=== PATIENT | female | born 2000 | race Caucasian/White ===

== ENCOUNTER 2023-04-11 09:26 | Outpatient (CLI) | payer OTHER, SELFPAY | END 2023-04-11 09:27 | disposition home or self-care (01) | PROVIDERS: Visit Provider Family Medicine | DX: Z00.00 Encounter for general adult medical examination without abnormal findings (principal); Z13.6 Encounter for screening for cardiovascular disorders; Z13.0 Encounter for screening for diseases of the blood and blood-forming organs and certain disorders involving the immune mechanism; Z83.79 Family history of other diseases of the digestive system | CPT/HCPCS: 80053; 80061 ==

== ENCOUNTER 2024-03-02 01:58 | Emergency (ER) | payer BC, SELFPAY ==
[2024-03-02 02:08] VITALS: BP 141/93; PULSE 100; RESP 16; TEMP 36.4; O2SAT 94; BMI 43.9
--- NOTE | 2024-03-02 02:37 | ED_ITS ---
HPI - Dizziness General Date Seen: 03/02/24 <Niko Rincon MD - Last Filed: 03/03/24 10:29> Chief Complaint: Dizziness/Vertigo <Niko Rincon MD - Last Filed: 03/03/24 10:29> Stated Complaint: vomiting <Niko Rincon MD - Last Filed: 03/03/24 10:29> Time Seen by Provider: 03/02/24 02:01 <Niko Rincon MD - Last Filed: 03/03/24 10:29> Source: patient and family <Niko Rincon MD - Last Filed: 03/03/24 10:29> Mode of arrival: wheelchair <Niko Rincon MD - Last Filed: 03/03/24 10:29> Limitations: no limitations <Niko Rincon MD - Last Filed: 03/03/24 10:29> History of Present Illness HPI Narrative: Patient is a 23-year-old female who presents here for evaluation of dizziness, she has had this before although this type is more intense than she has had before. For the last 4-6 hours she has had intense vomiting will and feeling that the room is moving or spinning whenever she sits up or changes position. She has vomited approximately 12 times she is here today with her partner. She has had this before, and did try some [place]-Hallpike maneuvers at home, but she said this just made her vomit more. In the past she has used medication but was out of any medication. In the nurse has listed Imitrex although I do not know if this is actually the medication that she got. She denies any numbness tingling or weakness in her hands or feet, she denies any visual changes, she has no altered sensation notable, no history of inability to walk, falling to 1 side, although she says she does feel we more nauseous and vomiting when she is up moving around. She denies no clumsiness or any speech problems associated with this she did not have a headache, and says he only headache now she has is from the repeated vomiting. She does think that her hearing is a little bit muffled. She does note however for the last week or so she has felt stuffed up, and wonders if this is somehow would trigger there is no history of falls or head injury. Review of her chart shows and 2017 she was here, with similar type symptoms. She was given Antivert and [place]-Hallpike maneuvers. She does have a history of asthma. <Niko Rincon MD - Last Filed: 03/03/24 1 0:29> MD elicited complaint: dizziness and vertigo <Niko Rincon MD - Last Filed: 03/03/24 10:29> Pertinent past history: BPPV and inner ear problems <Niko Rincon MD - Last Filed: 03/03/24 10:29> Onset (ago): hour(s) <Niko Rincon MD - Last Filed: 03/03/24 10:29> Timing: sudden onset and episodic <Niko Rincon MD - Last Filed: 03/03/24 10:29> Severity: severe <Niko Rincon MD - Last Filed: 03/03/24 10:29> Description: sense of movement and room spinning <Niko Rincon MD - Last Filed: 03/03/24 10:29> History of similar symptoms: Yes <Niko Rincon MD - Last Filed: 03/03/24 10:29> Exacerbating factors: movement/ambulation and change in body position <Niko Rincon MD - Last Filed: 03/03/24 10:29> Relieving factors: remaining still and keeping eyes closed <Niko Rincon MD - Last Filed: 03/03/24 10:29> Associated symptoms: nausea, vomiting and nasal congestion <Niko Rincon MD - Last Filed: 03/03/24 10:29> Stroke scale total: 0 <Niko Rincon MD - Last Filed: 03/03/24 10:29> Related Data Home Medications: Home Medications ?Medication ?Instructions ?Recorded ?Confirmed albuterol sulfate 90 mcg/actuation 2 puff inhalation Q6H PRN 02/28/24 02/28/24 aerosol inhaler Previous Rx's ?Medication ?Instructions ?Recorded fluticasone 250 mcg-salmeterol 50 1 inh inhalation BID #60 ea 02/28/24 mcg/dose blistr powdr for inhalation (Advair Diskus) meclizine 25 mg tablet 25 mg PO TID PRN #15 tabs 03/02/24 ondansetron 4 mg disintegrating 4 mg PO Q8H PRN nausea and 03/02/24 tablet vomiting #7 tabs <Niko Rincon MD - Last Filed: 03/03/24 10:29> Allergies/Adverse Reactions: Allergies Allergy/AdvReac Type Severity Reaction Status Date / Time No Known Drug Allergies Allergy Verified 02/28/24 11:06 <Niko Rincon MD - Last Filed: 03/03/24 10:29> Review of Systems Status of ROS: Reports: 10 or more systems reviewed and unremarkable except as noted in History and below <Niko Rincon MD - Last Filed: 03/03/24 10:29> [facility] Medical History: Medical History Benign paroxysmal positional vertigo (10/10/16) ?H81.10 - Benign paroxysmal vertigo, unspecified ear (ICD-10) <Niko Rincon MD - Last Filed: 03/03/24 10:29> Social History: Social History Little interest or pleasure in doing things: more than half the days Feeling down, depressed, or hopeless: several days <Niko Rincon MD - Last Filed: 03/03/24 10:29> Exam Narrative: Exam Narrative: She is in room 2, she is here with her partner, her speech is entirely normal, she is alert oriented x3, GCS is 15/15, she prefers the room dark, her TMs bilaterally are normal, so is a set her up she starts to retch and vomit. Cranial nerves 3-12 are normal, she appears to have left-sided horizontal nystagmus. 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 Skin reveals no petechiae rashes. <Niko Rincon MD - Last Filed: 03/03/24 10:29> Const: Vital Signs, click to edit/add: Vital Signs - 24 hr 03/02/24 02:08 03/02/24 05:55 03/02/24 08:33 Temperature 97.6 F 97.3 F L Pulse Rate [Pulse Oximeter] 100 64 75 Respiratory Rate 16 16 18 Blood Pressure [Ri ght Upper Arm] 141/93 H 121/80 Pulse Oximetry 94 97 98 Oxygen Delivery Me thod Room Air Room Air Room Air <Niko Rincon MD - Last Filed: 03/03/24 10:29> Vital Signs, click to edit/add: Vital Signs - 24 hr 03/02/24 02:08 03/02/24 05:55 03/02/24 08:33 Temperature 97.6 F 97.3 F L Pulse Rate [Pulse Oximeter] 100 64 75 Respiratory Rate 16 16 18 Blood Pressure [Ri ght Upper Arm] 141/93 H 121/80 Pulse Oximetry 94 97 98 Oxygen Delivery Me thod Room Air Room Air Room Air <Leonela Chand MD - Last Filed: 03/02/24 09:24> Documenting provider has reviewed patient's vital signs: yes <Niko Rincon MD - Last Filed: 03/03/24 10:29> Course Reevaluation(s) Time of Reevaluation #1: 03:12 <Niko Rincon MD - Last Filed: 03/03/24 10:29> Reevaluation #1: I went back in and evaluated the patient she is doing much better after medications, she was able to fall asleep, she feels much less dizzy. I reviewed her laboratory tests which were all normal with her. I do think that this is partially related to her URI that she has. I am not getting a feeling that this is central vertigo, <Niko Rincon MD - Last Filed: 03/03/24 10:29> Time of Reevaluation #2: 04:19 <Niko Rincon MD - Last Filed: 03/03/24 10:29> Reevaluation #2: She is doing better but she still really unable to sit up, this is really bad vertigo that this young lady has. I will do a CT scan to rule out intra cranial abnormality, and I will do an MRI and a CT , no evidence he has had previous neuro imaging done. We also try some Ativan, and I will sign her over to the oncoming ER physician. For further delineation after MRI. <Niko Rincon MD - Last Filed: 03/03/24 10:29> Reevaluation #3: Patient was signed out to me by Dr. Rincon to follow-up on the MRI. MRI is read by Radiology as follows: Patient: BENSON PINTO Facility:?[facility] Patient ID:?[id number] Site Patient ID:?[id number]. Site :?[id number] Study:?MRI-Head WO-03/02/2024 8:24:55 AM Ordering Physician:?Mckenzie Pope Final Report: INDICATION: Vertigo. Nystagmus. Unable to walk. TECHNIQUE: Brain MRI without contrast. COMPARISON: Head CT from 03/02/2024. FINDINGS: No evidence of acute ischemia. No evidence of acute or chronic intracranial blood products. No pathologic intracranial signal abnormality. No mass effect or herniation. No hydrocephalus or extra-axial collections. The pituitary gland, parasellar structures and optic chiasm are normal. Posterior fossa is normal. All the major intracranial vascular structures demonstrate normal flow-related signal. The orbital contents are normal. No calvarial or skull base marrow replacing process. No obstructive sinus disease. No extracranial soft tissue findings. IMPRESSION: 1. No significant intracranial abnormality. Dictated by Carlos Menezes MD @ 03/02/2024 9:02:15 AM Patient feels improved and able to go home. She requests a work note for the next couple of nights, this was provided. I sent prescriptions for meclizine and Zofran. Recommend follow-up with primary care if symptoms are persistent and not improving over the next couple of days. Return any time for acute worsening. <Leonela Chand MD - Last Filed: 03/02/24 09:24> Vital Signs Vital signs: Initial Vital Signs Temperature 97.6 F 03/02/24 02:08 Temperature Source Temporal Artery Scan 03/02/24 02:08 Pulse Rate 100 03/02/24 02:08 Respiratory Rate 16 03/02/24 02:08 Blood Pressure 141/93 H 03/02/24 02:08 Blood Pressure Mean 109 H 03/02/24 02:08 Blood Pressure Position Supine 03/02/24 02:08 Pulse Oximetry 94 03/02/24 02:08 Oxygen Delivery Method Room Air 03/02/24 02:08 Vital Signs Temperature 97.6 F 03/02/24 02:08 Pulse Rate 100 03/02/24 02:08 Respiratory Rate 16 03/02/24 02:08 Blood Pressure 141/93 H 03/02/24 02:08 Pulse Oximetry 94 03/02/24 02:08 Oxygen Delivery Method Room Air 03/02/24 02:08 Temperature 97.3 F L 03/02/24 08:33 Pulse Rate 75 03/02/24 08:33 Respiratory Rate 18 03/02/24 08:33 Blood Pressure 121/80 03/02/24 08:33 Pulse Oximetry 98 03/02/24 08:33 Oxygen Delivery Method Room Air 03/02/24 08:33 <Niko Rincon MD - Last Filed: 03/03/24 10:29> Initial Vital Signs Temperature 97.6 F 03/02/24 02:08 Temperature Source Temporal Artery Scan 03/02/24 02:08 Pulse Rate 100 03/02/24 02:08 Respiratory Rate 16 03/02/24 02:08 Blood Pressure 141/93 H 03/02/24 02:08 Blood Pressure Mean 109 H 03/02/24 02:08 Blood Pressure Position Supine 03/02/24 02:08 Pulse Oximetry 94 03/02/24 02:08 Oxygen Delivery Method Room Air 03/02/24 02:08 Vital Signs Temperature 97.6 F 03/02/24 02:08 Pulse Rate 100 03/02/24 02:08 Respiratory Rate 16 03/02/24 02:08 Blood Pressure 141/93 H 03/02/24 02:08 Pulse Oximetry 94 03/02/24 02:08 Oxygen Delivery Method Room Air 03/02/24 02:08 Temperature 97.3 F L 03/02/24 08:33 Pulse Rate 75 03/02/24 08:33 Respiratory Rate 18 03/02/24 08:33 Blood Pressure 121/80 03/02/24 08:33 Pulse Oximetry 98 03/02/24 08:33 Oxygen Delivery Method Room Air 03/02/24 08:33 <Leonela Chand MD - Last Filed: 03/02/24 09:24> Medications Administered Medications: Discontinued Medications Generic Name Dose Route Start Last Admin Trade Name Freq PRN Reason Stop Dose Admin Sodium Chloride 250 mls @ 250 mls/hr 03/02/24 02:28 03/02/24 03:45 0.9 % Sodium Chloride 250 Ml IV 03/02/24 03:27 Infused .Q1H ONE Infusion Diphenhydramine HCl 50 mg/ 101 mls @ 404 mls/hr 03/02/24 02:48 03/02/24 03:45 Sodium Chloride IVPB 03/02/24 02:49 Infused ONCE ONE Infusion Lorazepam 1 mg 03/02/24 03:51 03/02/24 03:59 Lorazepam 2 Mg/Ml Inj IVP 03/02/24 03:52 1 mg Q6H ONE Administration Ondansetron HCl 4 mg 03/02/24 02:28 03/02/24 02:41 Ondansetron 2 Mg/Ml Inj IVP 4 mg ONCE PRN Administration <Niko Rincon MD - Last Filed: 03/03/24 10:29> Discontinued Medications Generic Name Dose Route Start Last Admin Trade Name Yareli PRN Reason Stop Dose Admin Sodium Chloride 250 mls @ 250 mls/hr 03/02/24 02:28 03/02/24 03:45 0.9 % Sodium Chloride 250 Ml IV 03/02/24 03:27 Infused .Q1H ONE Infusion Diphenhydramine HCl 50 mg/ 101 mls @ 404 mls/hr 03/02/24 02:48 03/02/24 03:45 Sodium Chloride IVPB 03/02/24 02:49 Infused ONCE ONE Infusion Lorazepam 1 mg 03/02/24 03:51 03/02/24 03:59 Lorazepam 2 Mg/Ml Inj IVP 03/02/24 03:52 1 mg Q6H ONE Administration Ondansetron HCl 4 mg 03/02/24 02:28 03/02/24 02:41 Ondansetron 2 Mg/Ml Inj IVP 4 mg ONCE PRN Administration <Leonela Chand MD - Last Filed: 03/02/24 09:24> MDM - Dizziness MDM Narrative Medical decision making narrative: Life-threatening differential diagnosis considered include, CVA, other differential diagnosis include BPPV, labyrinthitis, Meniere's disease, vestibular neuronitis, migraine, multiple sclerosis, otitis media, viral syndrome as well as other etiologies We will go ahead and start an IV, we will give her some Zofran I will check a test to ensure that she is not before we give any benzodiazepines I will check her old records to see if there has been neuro imaging done before. Not that I think he needs to be done for sure today given her past history, but it would be good to know. <Niko Rincon MD - Last Filed: 03/03/24 10:29> Differential Diagnosis Differential diagnosis: Likely adverse reaction to drug, benign paroxysmal positional vertigo, orthostatic hypotension, vertebral basilar insufficiency, cerebrovascular accident, acute vestibular neuronitis and transient cerebral ischemia <Niko Rincon MD - Last Filed: 03/03/24 10:29> Medical Records Attestation: I reviewed the patient's medical records. <Niko Rincon MD - Last Filed: 03/03/24 10:29> Lab Data Attestation: I reviewed the patient's lab results. <Niko Rincon MD - Last Filed: 03/03/24 10:29> Labs: Lab Results 03/02/24 03/02/24 Range/Units 02:30 04:40 WBC 10.32 (4.50-11.00) K/uL RBC 5.32 H (4.00-5.20) m/uL Hgb 15.6 (12.0-16.0) gm/dL Hct 45.1 (33.0-51.0) % MCV 85 (80-100) fL MCH 29 (26-34) pg MCHC 35 (32-36) gm/dL RDW Coeff of Leanne 12.2 (11.5-15.5) % Plt Count 351 (140-440) K/uL Neut % (Auto) 70.6 (42.0-72.0) % Lymph % (Auto) 21.0 (20-44) % [place] % (Auto) 5.1 (0.0-11.0) % Eos % (Auto) 1.2 (0.0-7.0) % Baso % (Auto) 0.8 (0.0-3.0) % Neut # (Auto) 7.29 H (1.7-7.0) K/uL Lymph # (Auto) 2.17 (0.90-2.90) K/uL [place] # (Auto) 0.50 (0.00-0.90) K/UL Eos # (Auto) 0.12 (0.00-0.50) K/uL Baso # (Auto) 0.08 (0.00-0.30) K/uL Abs Immat Gran (auto) 0.13 (0.00-0.30) K/uL Imm/Tot Granulo (auto) 1.3 % D-Dimer Quant (PE/DVT) 0.26 (0.00-0.50) ug/ml Sodium 141 (135-149) mmol/L Potassium 3.8 (3.6-5.1) mmol/L Chloride 103 (96-114) mmol/L Carbon Dioxide 24 (20-32) mmol/L Anion Gap 14 (7-15) mEq/L BUN 15 (5-24) mg/dL Creatinine 0.6 (0.5-1.5) mg/dL Estimated Creat Clear 114.35 Estimated GFR 128 ml/min Glucose 113 (60-115) mg/dL Calcium 10.2 (8.4-10.6) mg/dL C-Reactive Protein 2.2 H (0.5-1.0) mg/dL HCG, Qual Negative (Negative) SARS-CoV-2 (PCR) Negative SARS-CoV-2 (Negative) Influenza Type A (PCR) Negative PCR FLU A (Negative) Influenza Type B (PCR) Negative PCR FLU B (Negative) RSV (PCR) Negative PCR RSV (Negative) Lab Acknowledgement Test Added <Niko Rincon MD - Last Filed: 03/03/24 10:29> Lab Results 03/02/24 03/02/24 Range/Units 02:30 04:40 WBC 10.32 (4.50-11.00) K/uL RBC 5.32 H (4.00-5.20) m/uL Hgb 15.6 (12.0-16.0) gm/dL Hct 45.1 (33.0-51.0) % MCV 85 (80-100) fL MCH 29 (26-34) pg MCHC 35 (32-36) gm/dL RDW Coeff of Leanne 12.2 (11.5-15.5) % Plt Count 351 (140-440) K/uL Neut % (Auto) 70.6 (42.0-72.0) % Lymph % (Auto) 21.0 (20-44) % [place] % (Auto) 5.1 (0.0-11.0) % Eos % (Auto) 1.2 (0.0-7.0) % Baso % (Auto) 0.8 (0.0-3.0) % Neut # (Auto) 7.29 H (1.7-7.0) K/uL Lymph # (Auto) 2.17 (0.90-2.90) K/uL [place] # (Auto) 0.50 (0.00-0.90) K/UL Eos # (Auto) 0.12 (0.00-0.50) K/uL Baso # (Auto) 0.08 (0.00-0.30) K/uL Abs Immat Gran (auto) 0.13 (0.00-0.30) K/uL Imm/Tot Granulo (auto) 1.3 % D-Dimer Quant (PE/DVT) 0.26 (0.00-0.50) ug/ml Sodium 141 (135-149) mmol/L Potassium 3.8 (3.6-5.1) mmol/L Chloride 103 (96-114) mmol/L Carbon Dioxide 24 (20-32) mmol/L Anion Gap 14 (7-15) mEq/L BUN 15 (5-24) mg/dL Creatinine 0.6 (0.5-1.5) mg/dL Estimated Creat Clear 114.35 Estimated GFR 128 ml/min Glucose 113 (60-115) mg/dL Calcium 10.2 (8.4-10.6) mg/dL C-Reactive Protein 2.2 H (0.5-1.0) mg/dL HCG, Qual Negative (Negative) SARS-CoV-2 (PCR) Negative SARS-CoV-2 (Negative) Influenza Type A (PCR) Negative PCR FLU A (Negative) Influenza Type B (PCR) Negative PCR FLU B (Negative) RSV (PCR) Negative PCR RSV (Negative) Lab Acknowledgement Test Added <Leonela Chand MD - Last Filed: 03/02/24 09:24> Discharge Plan Discharge Clinical Impression: Vertigo, Vomiting <Niko Rincon MD - Last Filed: 03/03/24 10:29> Patient Disposition: Home, Self-Care <Niko Rincon MD - Last Filed: 03/03/24 10:29> Condition: Improved <Niko Rincon MD - Last Filed: 03/03/24 10:29> Instructions: Vertigo (DC) <Niko Rincon MD - Last Filed: 03/03/24 10:29> Additional Instructions: Your MRI today is normal. Your symptoms are likely related to problems with your inner ear. You can use meclizine and/or Zofran if needed symptomatically. See your doctor if symptoms persist. Return any time for acute worsening or new symptoms. <Niko Rincon MD - Last Filed: 03/03/24 10:29> Prescriptions: New meclizine 25 mg tablet 25 mg PO TID PRNQty: 15 0RF ondansetron 4 mg tablet,disintegrating 4 mg PO Q8H PRN (Reason: nausea and vomiting) Qty: 7 0RF No Action albuterol sulfate 90 mcg/actuation HFA aerosol inhaler 2 puff inhalation Q6H PRN fluticasone propion-salmeterol [Advair Diskus] 250-50 mcg/dose blister with device 1 inh inhalation BID Qty: 60 1RF <Niko Rincon MD - Last Filed: 03/03/24 10:29> Follow Up/Referrals: Matt Ortiz MD [Primary Care Provider] - <Niko Rincon MD - Last Filed: 03/03/24 10:29> [facility] <Niko Rincon MD - Last Filed: 03/03/24 10:29>
[2024-03-02] MEDS: ONDANSETRON 2 MG/ML inj 4 MG IVP (02:41)
[2024-03-02] MEDS: 0.9 % SODIUM CHLORIDE 250 ml 250 ML IV (02:41)
[2024-03-02 02:45] LABS: Basophils Absolute Auto 0.08 K/uL (0.00-0.30); Basophils Percent Auto 0.8 % (0.0-3.0); Eosinophils Absolute Auto 0.12 K/uL (0.00-0.50); Eosinophils Percent Auto 1.2 % (0.0-7.0); Hematocrit 45.1 % (33.0-51.0); Hemoglobin* 15.6 gm/dL (12.0-16.0); Immature Granulocytes Abs Auto 0.13 K/uL (0.00-0.30); Immature Granulocytes Pct Auto 1.3 %; Lymphocytes Absolute Auto 2.17 K/uL (0.90-2.90); Mean Corpuscular HGB Conc 35 gm/dL (32-36); Mean Corpuscular Hemoglobin 29 pg (26-34); Mean Corpuscular Volume 85 fL (80-100); Monocytes Percent Auto 5.1 % (0.0-11.0); Neutrophils Absolute Auto 7.29 K/uL (1.7-7.0); Neutrophils Percent Auto 70.6 % (42.0-72.0); Platelet Count* 351 K/uL (140-440); RDW Coefficient of Variation % 12.2 % (11.5-15.5); Red Blood Count 5.32 m/uL (4.00-5.20); White Blood Count* 10.32 K/uL (4.50-11.00)
[2024-03-02 02:46] LABS: Slide Review Reflex No
--- OUTSIDE RECORDS SUMMARY | 2024-03-02 02:52 | XMS_ITS | Clinical Summary ---
Author Organization [facility] [employer] Address [place], [place] [address] Care Team Providers Care Musical Engineer Name Role Phone [facility], [facility] Primary Care Pr ovider Allergies No known active allergies Medications Medication Sig Dispensed Refills Start Date End Date Status albuterol HFA (PROAIR HFA) 90 mcg/actuation inhalerIndications:Mild intermittent asthma without complication Inhale 2 Puffs by mouth every 4 hours if needed. 1 Inhaler 1 08/06/2019 Active cyclobenzaprine (FLEXERIL) 10 mg tabletIndications:Neck muscle spasm Take 1 Tablet (10 mg) by mouth 3 times daily if needed for Muscle Spasm. 21 Tablet 1 09/14/2021 Active levonorgestrel-ethinyl estrad, 0.1mg-20mcg, (ALESSE-28) 0.1-20 mg-mcg tabletIndications:Encou nter for oral contraception initial prescription Take 1 Tablet by mouth once daily. 84 Tablet 3 02/14/2023 Active fluticasone propion-salmeteroL (Advair Diskus) 100-50 mcg/dose diskus inhalerIndications:Exac erbation of asthma, unspecified asthma severity, unspecified whether persistent Inhale 1 Puff by mouth two times daily. 60 Each 04/04/2023 Active predniSONE (DELTASONE) 50 mg tab tabletIndications:Exace rbation of asthma, unspecified asthma severity, unspecified whether persistent,Sinusitis, unspecified chronicity, unspecified location Take 1 Tablet (50 mg) by mouth once daily. 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 Resolved Problems Problem Noted Date Diagnosed Date Resolved Date Unspecified disturbance of conduct 03/25/2008 06/30/2012 Unspecified constipation 09/08/200708/2012 Unspecified asthma(493.90) 04/07/2007 0 07/28/2021 Nonspecific abnormal results of thyroid function study 02/05/2007 06/30/2012 Dermatophytosis of foot 02/05/200708/2012 Immunizations Name Administration Dates Next Due AMB Influenza, IIV3 (Age >=3 years)(Flu Clinic Only) 05/09/2009,03/30/2008 AMB Influenza, IIV4 PF (=>6 mos Flulaval,Fluzone Fluarix)(Flu Clinic Only) 03/12/2016,02/11/2014 DTaP 12/10/2003,,1999,10/18,1999 DTaP-HIB (TriHIBIT) 1999 HIB PRP-OMP (PedvaxHIB) 1999 HIB-HepB (Comvax) 06/25/2000,1999 Hep B (Hepatitis B (Adult) R ecombinant Adjuvanted) 11/12/2022 Hepatitis A (Peds) 10/25/2008,08/02/2008, 001 Hepatitis B (Peds) 02/10/2007,1999 Human Papilloma Virus Vaccine 10/17/2011, 012,07/17/2010 Inactivated Polio Vaccine 12/10/2003,,1999,08/17 Influenza A (H1N1), Inactivated 05/16/2009,04/14 Influenza A (H1N1), Inactiva rao (Age >=3 Years) 05/16/2009,04/14/2009 Influenza Virus, Unspecified 03/12/2018 Influenza, IIV3 (Age 6-35 mos) 05/09/2009 Influenza, IIV3 (Age >=3 years) 05/10/20 15,04/18/2012,05/11/2011,03/08,03/30/2008,04/07/2007,07/17/2006 ,04/10/2004,05/05/2002 Influenza, IIV4 02/14/2023, 0,02/24/2019,04/25,03/12/2016,02/11/2014 MENINGOCOCCAL VACCINE 2 VIAL 2MO-55YO (MENVEO) 05/25/2016,07/17/2010 MMR 12/10/2003,06/25/2000 Meningococcal Vaccine (Menactra) 07/17/2010 Pneumococcal Conj 20-valent (Prevnar 20) 02/14/2023 Pneumococcal conj 7-Valent (Prevnar 7) 0 06/25/2000,03/28/2000,1999,10/18 Td (Age >=7 Years) 07/27/2021 Tdap 07/17/2010 Varicella Vaccine 02/10/2007,04/18/2005,06/25/19 01 Family History Medical History Relation Name Comments Cancer Maternal Grandmother ovarian cancer Diabetes Maternal Grandmother Asthma Mother Diabetes Mother type 2 Other Mother obese and PCOS Diabetes Paternal Grandmother Hyperlipidemia Paternal Grandmother Hypertension Paternal Grandmother Other Sister overweight Cancer-colon No Family History Heart Disease No Family History Relation Name Status Comments Maternal Grandmother Mother Paternal Grandmother Sister Social History Tobacco Use Types Packs/Day Years Used Date Smoking Tobacco: Former Cigarettes 0.3 5.4 S tarted: 09/29/2018 Smokeless Tobacco: Former Quit: 05/13/2019 Tobacco Cessation:Counseling Given: Not Answered Alcohol Use Standard Drinks/Week Comments Never 0 (1 standard drink = 0.6 oz pur e alcohol) PHQ-2 Answer Date Recorded PHQ-2 TOTAL SCORE 0 07/27/2021 Social Connections Answer Date Recorded Frequency of Communication with Friends and Fami ly Not on file 05/23/2021 Alcohol Use Answer Date Recorded How often do you have a drink containing alcohol ? 2 02/14/2023 How many drinks containing a lcohol do you have on a typical day when you are drinking? 0 02/14/2023 How often do you have five or more drinks on one occasion? 1 02/14/2023 Financial Resource Strain Answer Date R ecorded Difficulty of Paying Living Expenses Not on file 05/23/2021 Difficulty of Paying Living Expenses Not on file 05/23/2021 Sex and Gender Information Value Date Recorded Sex Assigned at Not on file Gender Identity Not on file Sexual Orientation Not on file Obstetrics History Para Term AB IAB SAB Ectopic Multiple Livin g Live Births 0 0 0 0 0 0 0 0 0 0 0 Last Filed Vital Signs Vital Sign Reading Time Taken Comments Blood Pressure 138/80 04/04/2023 12:15 PM EXPLOSIVE OPERATOR SUPERVISOR Pulse 91 04/04/2023 12:15 PM EXPLOSIVE OPERATOR SUPERVISOR Temperature 37.1 ??C (98.7 ??F) 04/04/2023 12:[address] Respiratory Rate 18 06/18/2022 3:28 PM EXPLOSIVE OPERATOR SUPERVISOR Oxygen Saturation 98% 04/04/2023 12:15 PM EXPLOSIVE OPERATOR SUPERVISOR Inhaled Oxygen Concentration - - Weight 114.3 kg (252 lb) 04/04/2023 12:15 PM EXPLOSIVE OPERATOR SUPERVISOR Height 161.2 cm (5' 3.47) 02/14/2023 9:01 AM CD T Body Mass Index 43.99 02/14/2023 9:01 AM CDT Plan of Treatment Upcoming Encounters Date Type Department Care Team (Late st Contact Info) Description 03/03/2024 7:50 AM CDT Office Visit [facility] [address] [place] [address] Jazmin Campos PA [address] [facility] [place] [address] Health Maintenance Due Date Last Done Comments Hepatitis C screening for age 18-79 2017 Chlamydia for age 16-24 07/27/2022 03/03/20 22, 03/22/2020, 06/05/2019, Additional history exists Depression screening for age 12+ 07/27/2022 07/27/2021, 03/23/2020, 03/22/2020, Additional history exists COVID-19 vaccine series (2023- season) 2024 05/25/2021, 10/13/2020, 09/15/2020 Influenza for age 9-49 01/26/2024 , 03/22/2020, 02/24/2019, Additional history exists BMI (ht and wt on same day) for age 18+ 02/15/2024 02/14/2023, 09/14/2021, 07/27/2021, Additional history exists Pap test for age 21-65 07/27/2024 07/27/2021 Tetanus booster 07/28/2031 07/27/2021, 07/17/2010 Tdap Completed 07/17/2010 HPV series for age 9-26 Addressed 10/17/19 12, 06/22/2011, 06/01/2011 (Declined), Additional history exists Overridden with the intention of not completing the topic HIV for age 15-65 Completed 03/22/2020 Pneumococcal series for age 6-64 Aged Out 02/14/2023, 06/25/2000, 03/28/2000, Additional history exists No longer eligible based on patient's age to complete this topic Procedures Procedure Name Priority Date/Time Associated Diagnosis Comments GC CHLAMYDIA TRACH PROBE Routine 07/27/2021 2:36 PM EXPLOSIVE OPERATOR SUPERVISOR Irregular periods KNOWLEDGE ANALYST THIN PREP PAP SCREEN IMAGED Routine 07/27/2021 2:35 PM EXPLOSIVE OPERATOR SUPERVISOR Pap smear for cervical cancer screening ANTI HIV 1/2 Routine 03/22/2020 3:45 PM CDT Routine screening for STI (sexually transmitted infection) from Last 3 Months or Most Recently Relevant to Health Maintenance Results * GC & CHLAMYDIA DNA PCR [[id number]] (07/27/2021 2:36 PM EXPLOSIVE OPERATOR SUPERVISOR) CHLAMYDIA PROBE Negative 03/04/202 2 1:02 PM EXPLOSIVE OPERATOR SUPERVISOR [facility] TRA LABORATORY N GONORRHOEAE PROBE Negative 07/28/2021 1:02 PM EXPLOSIVE OPERATOR SUPERVISOR [facility] LABORATORY Other ENDOCERVICAL CYTOLOGIC MATERIAL / Unknown Non-Blood / Unknown 07/27/2021 2:36 PM EXPLOSIVE OPERATOR SUPERVISOR 07/27/2021 2:49 PM EXPLOSIVE OPERATOR SUPERVISOR Brett Ma MD MICROBIOLOGY [facility] LABORATORY [address] [place] [address], * KNOWLEDGE ANALYST THIN PREP PAP SCREEN IMAGED (07/27/2021 2:35 PM EXPLOSIVE OPERATOR SUPERVISOR) Case Report Gynecologic Cytology Report ? Case: [id number] ? Authorizing Provider: ??Brett Ma MD ??Collected: ? 07/27/2021 1435 ? Ordering Location: ? [facility] ?? Received: ?07/27/2021 1449 ? Clinic ? First Screen: ?Kathleen Dailey ? Specimen: ?KNOWLEDGE ANALYST ThinPrep Vial Screening, Cervical ? 08/04/2021 6:24 PM EXPLOSIVE OPERATOR SUPERVISOR [facility] [employer] [facility]-C ENTRAL LABORATORY INTERPRETATION/ RESULT NEGATIVE FOR INTRAEPITHELIAL LESION OR MALIGNANCY (NIL) (none) 08/04/2021 6:24 PM EXPLOSIVE OPERATOR SUPERVISOR [facility] ENTRAL LABORATORY IMEN ADEQUACY Satisfactory for evaluation No endocervical component seen 08/04/2021 6:24 PM EXPLOSIVE OPERATOR SUPERVISOR [facility] ENTRAL LABORATORY HPV REQUEST HPV if ASCUS 08/04/2021 6:24 PM EXPLOSIVE OPERATOR SUPERVISOR [facility] LABORATORY-C ENTRAL LABORATORY Date of LMP 06/28/2021 08/04/2021 6:24 PM EXPLOSIVE OPERATOR SUPERVISOR [facility] ENTRAL LABORATORY Last Pap Date 0000 08/04/2021 6:24 PM EXPLOSIVE OPERATOR SUPERVISOR [facility] ENTRAL LABORATORY Last Pap Result First Pap/Unknown 6:24 PM EXPLOSIVE OPERATOR SUPERVISOR [facility] ENTRAL LABORATORY Abnormal Pap or [place] Bx in last 5 years No 08/04/2021 6:24 PM EXPLOSIVE OPERATOR SUPERVISOR [facility] ENTRAL LABORATORY Menstrual Status Regular Periods 08/04/2021 6:24 PM EXPLOSIVE OPERATOR SUPERVISOR [facility] ENTRAL LABORATORY [place] Bx Done Today No 08/04/2021 6:24 PM EXPLOSIVE OPERATOR SUPERVISOR [facility] ENTRAL LABORATORY Additional Information None given 08/04/2021 6:24 PM EXPLOSIVE OPERATOR SUPERVISOR [facility] ENTRAL LABORATORY Comment: Cytology is screened at [facility] [employer] Central Laboratory - [address], [place] [address] and [facility] - [address], [place] [address] and [facility] - [address] [place] [address] Interpreted at [facility] [employer] [facility], Central Laboratory - [address], [place] [address] Automated Review Successful 08/04/2021 6:24 PM EXPLOSIVE OPERATOR SUPERVISOR [facility] [employer] [facility]- ENTRAL LABORATORY Comment:Specimen processed s uccessfully by automated bear keeper device, ThinPrep Imaging System, [employer] Note The pap test is a screening technique, not a diagnostic procedure. It is used primarily to screen for squamous cancers and precursor lesions. Published studies have shown that it is subject to both false negative and false positive results. The pap test should not be used as the sole means to diagnose or exclude pre-malignant and malignant lesions. 08/04/2021 6:24 PM EXPLOSIVE OPERATOR SUPERVISOR [facility] [employer] LABORATORY- ENTRAL LABORATORY Other (Cervical) Non-Blood / Unknown 07/27/2021 2:35 PM EXPLOSIVE OPERATOR SUPERVISOR 07/27/2021 2:49 PM EXPLOSIVE OPERATOR SUPERVISOR Brett Ma MD [facility] [address] [place] [address], [place] * ANTI HIV 1/2 (03/22/2020 3:45 PM CDT) HIV-1/HIV-2 ANTIBODY Non-Reacti ve Non-Reacti ve 03/24/2020 5:23 PM CDT [facility] TRAL LABORATORY Comment:HIV-1 p24 and HIV-1/ HIV-2 Ab not detected. Blood BLOOD SPECIMEN / Unknown Add On / Unknown 03/22/2020 3:45 PM CDT 03/24/2020 8:24 AM CDT Lucila Houston MD SEND OUTS [facility] LABORATORY [address] [place] [address], [place] from Last 3 Months or Most Recently Relevant to Health Maintenance Care Teams Musical Engineer Relationship Specialty Start Date End Date Clinic, [facility] [address] [address] PCP - General 01/06/24
--- OUTSIDE RECORDS SUMMARY | 2024-03-02 02:52 | XMS_ITS | Continuity of Care Document ---
Author Organization [facility] Address [address] [address] [place] [address] Phone Care Team Providers Care Utility Systems Repairer Operator Name Role Phone Unavailable Unavailable Unavailable Advance Directives Directive Yes / No Effective Date File Name No Information Encounters Encounter Description Practice Location Reason(s) For Visit Diagnoses Date Provider Providers Copied on Encounter [facility], [address] [address], [place], [place], [id number], tel:[phone] [facility] No Information 0 3-200 3 No Information Referring Provider: Carlee Armenta MD G, [address] [place] [address], [address]. tel:[phone] Family History Family Member Type Diagnosis Age At Onset No Information Payers Payer name Insurance type Covered green party ID Authoriza tion(s) No Information Social History Type Description Quantity Date Captured Comments Sex Female Smoking Status No Information Chief Complaint And Reason For Visit No Information Reason For Referral Reason For Referral No Information History Of Present Illness Encounter Date Complaint History Of Prese nt Illness No Information Functional Status Date Functional Assessmen t No Information Instructions Date Instruction Additional Infor mation No Information Assessments Type Assessment Date No Information Patient Care Teams Name Effective Dates (start - stop) Status Members No Information
--- OUTSIDE RECORDS SUMMARY | 2024-03-02 02:52 | XMS_ITS | Continuity of Care Document ---
Author Organization [facility] Address [address] [address] [place] [address] Phone Care Team Providers Care Evidence Specialist Name Role Phone Unavailable Unavailable Unavailable Advance Directives Directive Yes / No Effective Date File Name No Information Encounters Encounter Description Practice Location Reason(s) For Visit Diagnoses Date Provider Providers Copied on Encounter [facility], [address] [address], [place], [place], [id number], tel:[phone] Pediatric Clinic No Information 0 3-200 3 No Information Referring Provider: Carlee Armenta MD G, [address] [place] [address], [address]. tel:[phone] Family History Family Member Type Diagnosis Age At Onset No Information Payers Payer name Insurance type Covered democrat ID Authoriza tion(s) No Information Social History [...]
[2024-03-02 02:55] LABS: Chloride* 103 mmol/L (96-114); Potassium* 3.8 mmol/L (3.6-5.1); Sodium* 141 mmol/L (135-149)
[2024-03-02 02:58] LABS: Creatinine* 0.6 mg/dL (0.5-1.5); Est. Creatinine Clearance* 114.35; Estimated Glomerular Filt Rate 128 ml/min; HCG Qualitative Serum* Negative (Negative)
[2024-03-02 02:59] LABS: Anion Gap 14 mEq/L (7-15); Blood Urea Nitrogen* 15 mg/dL (5-24); Calcium* 10.2 mg/dL (8.4-10.6); Carbon Dioxide* 24 mmol/L (20-32); Glucose* 113 mg/dL (60-115)
[2024-03-02] MEDS: diphenhydrAMINE 50 MG in 0.9 % SODIUM CHLORIDE 100 ml 100 ML 404 MG IVPB (02:59)
[2024-03-02 03:02] LABS: C Reactive Protein* 2.2 mg/dL (0.5-1.0)
--- NOTE | 2024-03-02 03:51 | CRLHL7_ITS ---
For Patients: As a result of the Century Cures Act, medical imaging exams and procedure reports are released immediately into your electronic medical record. You may view this report before your referring provider. If you have questions, please contact your health care provider. Indication: Vertigo, headache. Technique: Noncontrast CT of head was performed. Comparison: None available. Findings: Brain parenchyma: Normal villareal-white matter differentiation. No acute intraparenchymal hemorrhage. No mass effect or midline shift. Extra-axial spaces: No extra-axial collection. Ventricular system: Unremarkable for age. Paranasal sinuses and mastoid air cells: Clear. Orbits: Unremarkable. Bones: No calvarial fracture. Impression: No acute intracranial abnormality identified. Please note that all CT scans at this facility use dose modulation, iterative reconstruction, and/or weight-based dosing when appropriate to reduce radiation dose to as low as reasonably achievable. Dictated by Marycruz Little MD @ 03/02/2024 4:50:37 AM (Electronically Signed)
[2024-03-02] MEDS: LORazepam 2 MG/ML inj 1 MG IVP (03:59)
--- NOTE | 2024-03-02 04:11 | CRLHL7_ITS ---
For Patients: As a result of the Century Cures Act, medical imaging exams and procedure reports are released immediately into your electronic medical record. You may view this report before your referring provider. If you have questions, please contact your health care provider. INDICATION: Vertigo. Nystagmus. Unable to walk. TECHNIQUE: Brain MRI without contrast. COMPARISON: Head CT from 03/02/2024. FINDINGS: No evidence of acute ischemia. No evidence of acute or chronic intracranial blood products. No pathologic intracranial signal abnormality. No mass effect or herniation. No hydrocephalus or extra-axial collections. The pituitary gland, parasellar structures and optic chiasm are normal. Posterior fossa is normal. All the major intracranial vascular structures demonstrate normal flow-related signal. The orbital contents are normal. No calvarial or skull base marrow replacing process. No obstructive sinus disease. No extracranial soft tissue findings. IMPRESSION: 1. No significant intracranial abnormality. Dictated by Carlos Menezes MD @ 03/02/2024 9:02:15 AM (Electronically Signed)
[2024-03-02 04:37] LABS: PCR FLU A Negative PCR FLU A (Negative); PCR FLU B Negative PCR FLU B (Negative); PCR RSV Negative PCR RSV (Negative); SARS PCR* Negative SARS-CoV-2 (Negative)
[2024-03-02 05:00] LABS: D Dimer Quantitative* 0.26 ug/ml (0.00-0.50)
[2024-03-02 05:55] VITALS: PULSE 64; RESP 16; O2SAT 97
[2024-03-02 08:33] VITALS: BP 121/80; PULSE 75; RESP 18; TEMP 36.3; O2SAT 98
== END 2024-03-02 09:28 | disposition home or self-care (01) ==
PROVIDERS: Emergency Provider Family Medicine; PCP Family Medicine
DX: R42 Dizziness and giddiness (principal); R11.10 Vomiting, unspecified
CPT/HCPCS: 36415; 70450; 70551; 80048; 84703; 85025; 85379; 86140; 87631; 96365; 96375; 99284; J1200; J2060; J2405; J7050

== ENCOUNTER 2024-04-03 10:32 | Outpatient (CLI) | payer BC, SELFPAY ==
[2024-04-06 16:19] LABS: HPV Source Cervical; HPV, High Risk by TMA Detected
[2024-04-08 16:13] LABS: HPV Genotype 16 by TMA Not Detected; HPV Genotype 18/45 by TMA Not Detected; HPVG Source Cervical
== END 2024-04-03 10:33 | disposition home or self-care (01) ==
PROVIDERS: PCP Family Medicine; Visit Provider Obstetrics & Gynecology
DX: Z01.419 Encounter for gynecological examination (general) (routine) without abnormal findings (principal); E28.2 Polycystic ovarian syndrome; N91.2 Amenorrhea, unspecified; Z12.4 Encounter for screening for malignant neoplasm of cervix
CPT/HCPCS: 83498; 84146; 84270; 84402; 84403; 84439; 84443; 87624; 87625; 88141; 88142

== ENCOUNTER 2024-04-08 14:32 | Outpatient (CLI) | payer BC, SELFPAY ==
--- NOTE | 2024-04-08 14:30 | CRLHL7_ITS ---
For Patients: As a result of the Century Cures Act, medical imaging exams and procedure reports are released immediately into your electronic medical record. You may view this report before your referring provider. If you have questions, please contact your health care provider. INDICATION: Amenorrhea COMPARISON: none TECHNIQUE: 2D villareal scale and color Doppler images were acquired of the pelvis using a transabdominal and transvaginal approach. FINDINGS: Sonographic images demonstrate a normal size and smooth outer contour of the uterus. Uterus measures 6.7 cm in length by 2.9 cm in AP diameter by 3.6 cm in transverse dimension. The myometrium has a normal uniform echotexture. The endometrial lining appears normal and measures 6.2 mm in composite thickness. The right ovary measures 4.0 x 2.0 x 1.9 cm in size and the left ovary measures 2.7 x 2.2 x 2.4 cm. The ovaries demonstrate normal arterial and venous blood flow on color Doppler analysis. There are no suspicious fluid collections within the cul-de-sac. IMPRESSION: Normal pelvic ultrasound. Dictated by Juarez Cat MD @ 04/10/2024 6:01:26 AM (Electronically Signed)
== END 2024-04-08 14:33 | disposition home or self-care (01) ==
LOC: US 14:33
PROVIDERS: PCP Family Medicine; Visit Provider Obstetrics & Gynecology
DX: N91.2 Amenorrhea, unspecified (principal); R10.2 Pelvic and perineal pain
CPT/HCPCS: 76830; 76856

== ENCOUNTER 2024-04-17 09:55 | Outpatient (CLI) | payer BC, SELFPAY ==
--- OUTSIDE RECORDS SUMMARY | 2024-04-17 09:57 | XMS_ITS | Clinical Summary ---
Author Organization [employer] [facility] Address [place], [place] [address] Care Team Providers Care Sheet Metal Former Name Role Phone [facility], [facility] Primary Care Pr ovider Allergies No known active allergies Medications Medication Sig Dispensed Refills Start Date End Date Status levonorgestrel-ethiny l estrad, 0.1mg-20mcg, (ALESSE-28) 0.1-20 mg-mcg tabletIndications:Enc ounter for oral contraception initial prescription Take 1 Tablet by mouth once daily. 84 Tablet 3 02/14/2023 Active fluticasone propion-salmeteroL (Advair Diskus) 100-50 mcg/dose diskus inhalerIndications:Ex acerbation of asthma, unspecified asthma severity, unspecified whether persistent Inhale 1 Puff by mouth two times daily. 60 Each 04/04/2023 Active meclizine (ANTIVERT) 25 mg tablet TAKE 1 TABLET BY MOUTH THREE TIMES A DAY NEEDED 03/02/2024 Active ondansetron (ZOFRAN ODT) 4 mg disintegrating tablet DISSOLVE 1 TABLET ON TONGUE EVERY 8 HRS NEEDED FOR NAUSEA AND VOMITING 03/02/2024 Active methylPREDNISolone (Medrol, Virgil,) 4 mg tabletIndications:Chris tigo Take by mouth as instructed per packaging. 21 Tablet 03/05/2024 Active albuterol HFA (ProAir HFA) 90 mcg/actuation inhalerIndications:Mi ld intermittent asthma without complication Inhale 2 Puffs by mouth every 4 hours if needed for Wheezing. 1 Each 1 03/05/2024 Active Active Problems Problem Noted Date Diagnosed Date Pap smear for cervical cancer screening 07/28/19 22 Overview (09/07/2021): Plan: Pap due 07/2024 Anxiety 11/11/2017 Acne vulgaris 04/10/2016 Overview (04/10/2016): iPledge ID # [id number] Irregular periods 08/10/2014 Sleep disorder 06/24/2009 ADHD [...] function study 02/05/2007 06/30/2012 Dermatophytosis of foot 02/05/2007/08/2012 Encounters Date Type Department Care Team Description 03/05/2024 2:30 PM CDT Office Visit [facility] [address] [place] [address] Brett Ma MD ER Follow up ([place], vertigo, 03/01/24) 03/05/2024 Travel 03/02/2024 Orders Only [facility] Scanner 1 scan: (1-Ord) [facility], CT HEAD/BRAIN, 03/02/2024 03/02/2024 Orders Only [facility] Scanner 1 scan: (1-Ord) [facility], MR HEAD/BRAIN, 03/02/2024 03/02/2024 Orders Only [facility] Scanner 1 scan: (1-Ord) [facility], MULTIPLE LABS, 03/02/2024 from Last 3 Months Immunizations Name Administration Dates Next Due AMB Influenza, IIV3 (Age >=3 years)(Flu Clinic Only) 05/09/2009,03/30/2008 AMB Influenza, IIV4 PF (=>6 mos Flulaval,Fluzone Fluarix)(Flu Clinic Only) 03/12/2016,02/11/2014 DTaP 12/10/2003, 1,1999,10/18,1999 DTaP-HIB (TriHIBIT) 1999 HIB PRP-OMP (PedvaxHIB) 1999 [...] Used Date Smoking Tobacco: Former Cigarettes 0.3 5.5 S tarted: 09/29/2018 Smokeless Tobacco: Former Quit: 05/13/2019 Tobacco Cessation:Counseling Given: Yes Alcohol Use Standard Drinks/Week Comments Never 0 (1 standard drink = 0.6 oz pur e alcohol) PHQ-2 Answer Date Recorded PHQ-2 TOTAL SCORE 0 07/27/2021 Social Connections Answer Date Recorded Do you often feel lonely or isolated from those around you? 0 03/05/2024 Alcohol Use Answer Date Recorded How often do you have a drink containing alcohol ? 2 02/14/2023 How many drinks containing a lcohol do you have on a typical day when you are drinking? 0 02/14/2023 How often do you have five or more drinks on one occasion? 1 02/14/2023 Financial Resource Strain Answer Date R ecorded Difficulty of Paying Living Expenses 3 03/05/2024 Difficulty of Paying Living Expenses Not on file 03/05/2024 Food Insecurity Answer Date Recorded Do you worry your food will run out before you are able to buy more? 1 03/05/2024 Transportation Needs Answer Date Record ed Does lack of transportation keep you from medica l appointments? 1 03/05/2024 Does lack of transportation keep you from work, meetings or getting things that you need? 1 03/05/2024 Housing Stability Answer Date Recorded What is your housing situation today? 1 03/05/2024 Sex and Gender Information Value Date Recorded Sex Assigned at Not on file Gender Identity Not on file Sexual Orientation Not on file Obstetrics History Para Term AB IAB SAB Ectopic Multiple Livin g Live Births 0 0 0 0 0 0 0 0 0 0 0 Last Filed Vital Signs Vital Sign Reading Time Taken Comments Blood Pressure 121/85 03/05/2024 2:45 PM CDT Pulse 80 03/05/2024 2:45 PM CDT Temperature 37.2 C (99 F) 03/05/2024 2:45 PM CDT Respiratory Rate 18 06/18/2022 3:28 PM ETIOLOGIST Oxygen Saturation 99% 03/05/2024 2:45 PM CDT Inhaled Oxygen Concentration - - Weight 111.8 kg (246 lb 8 oz) 03/05/2024 2:45 PM CDT Height 160 cm (5' 3) 03/05/2024 2:45 PM CDT Body Mass Index 43.67 03/05/2024 2:45 PM CDT Plan of Treatment Health Maintenance Due Date Last Done Comments Hepatitis C screening for age 18-79 2017 Chlamydia for age 16-24 07/27/2022 07/28/19, 03/22/2020, 06/05/2019, Additional history exists Depression screening for age 12+ 07/27/2022 07/27/2021, 03/23/2020, 03/22/2020, Additional history exists COVID-19 vaccine series ( season) 2024 05/25/2021, 10/13/2020, 09/15/2020 Influenza for age 9-49 01/26/2024 3, 03/22/2020, 02/24/2019, Additional history exists Pap test for age 21-65 07/27/2024 07/27/2021 BMI (ht and wt on same day) for age 18+ 03/05/2025 03/05/2024, 02/14/2023, 09/14/2021, Additional history exists Tetanus booster 07/28/2031 07/27/2021, 07/17/2010 Tdap Completed [...] Procedure Name Priority Date/Time Associated Diagnosis Comments SCAN-LABORATORY REPORT 12:00 AM CDT SCAN-CT INTERPRETATION 12:00 AM CDT SCAN-MRI INTERPRETATION 03/02/2024 12:00 AM CDT GC CHLAMYDIA TRACH PROBE Routine 07/27/2021 2:36 PM ETIOLOGIST Irregular periods INTERIOR DESIGN DIRECTOR THIN PREP PAP SCREEN IMAGED Routine 07/27/2021 2:35 PM ETIOLOGIST Pap smear for cervical cancer screening ANTI HIV 1/2 Routine 03/22/2020 3:45 PM CDT Routine screening for STI (sexually transmitted infection) from Last 3 Months or Most Recently Relevant to Health Maintenance Results * SCAN-LABORATORY REPORT (03/02/2024 12:00 AM CDT) Scanner OTHER * SCAN-MRI INTERPRETATION (03/02/2024 12:00 AM CDT) Anatomical Region Laterality Modality Other Scanner OTHER * SCAN-CT INTERPRETATION (03/02/2024 12:00 AM CDT) Anatomical Region Laterality Modality Other Scanner OTHER * GC & CHLAMYDIA DNA PCR [[id number]] (07/27/2021 2:36 PM ETIOLOGIST) CHLAMYDIA PROBE Negative 2 1:02 PM ETIOLOGIST [facility] N GONORRHOEAE PROBE Negative 07/28/2021 1:02 PM ETIOLOGIST [facility] Other ENDOCERVICAL CYTOLOGIC MATERIAL / Unknown Non-Blood / Unknown 07/27/2021 2:36 PM ETIOLOGIST 07/27/2021 2:49 PM ETIOLOGIST Brett Ma MD MICROBIOLOGY [facility] [address] [place] [address], [place] * INTERIOR DESIGN DIRECTOR THIN PREP PAP SCREEN IMAGED (07/27/2021 2:35 PM ETIOLOGIST) Case Report Gynecologic Cytology Report Case: [id number] Authorizing Provider: Brett Ma MD Collected: 07/27/2021 1435 Ordering Location: [facility] Received: 07/27/2021 1449 Clinic First Screen: Kathleen Dailey Specimen: INTERIOR DESIGN DIRECTOR ThinPrep Vial Screening, Cervical 08/04/2021 6:24 PM ETIOLOGIST [facility] [employer] [facility] INTERPRETATION/ RESULT NEGATIVE FOR INTRAEPITHELIAL LESION OR MALIGNANCY (NIL) (none) 08/04/2021 6:24 PM ETIOLOGIST [facility] [employer] [facility] EN[facility] IMEN ADEQUACY Satisfactory for evaluation No endocervical component seen 08/04/2021 6:24 PM ETIOLOGIST [facility] [employer] [facility] HPV REQUEST HPV if ASCUS 08/04/2021 6:24 PM ETIOLOGIST [facility] [employer] [facility] Date of LMP 06/28/2021 08/04/2021 6:24 PM ETIOLOGIST [facility] [employer] [facility] Last Pap Date 0000 08/04/2021 6:24 PM ETIOLOGIST [facility] EN[facility] Last Pap Result First Pap/Unknown 6:24 PM ETIOLOGIST [facility] [employer] [facility] Abnormal Pap or Lazbuddie Bx in last 5 years No 08/04/2021 6:24 PM ETIOLOGIST [facility] [employer] [facility] Menstrual Status Regular Periods 08/04/2021 6:24 PM ETIOLOGIST [facility] ENTRAL LAB[facility] Lazbuddie Bx Done Today No 08/04/2021 6:24 PM ETIOLOGIST [facility] Additional Information None given 08/04/2021 6:24 PM ETIOLOGIST [facility] [employer] [facility] Comment: Cytology is screened at [facility] - [address], [place] [address] and [facility] - [address], [place] [address] and [facility] - [address] [place] [address] Interpreted at [facility] - [address], [place] [address] Automated Review Successful 08/04/2021 6:24 PM ETIOLOGIST [facility] Comment:Specimen processed s uccessfully by automated boiler technician device, ThinPrep Imaging System, [employer] Note The pap test is a screening technique, not a diagnostic procedure. It is used primarily to screen for squamous cancers and precursor lesions. Published studies have shown that it is subject to both false negative and false positive results. The pap test should not be used as the sole means to diagnose or exclude pre-malignant and malignant lesions. 08/04/2021 6:24 PM ETIOLOGIST [facility] Other (Cervical) Non-Blood / Unknown 07/27/2021 2:35 PM ETIOLOGIST 07/27/2021 2:49 PM ETIOLOGIST Brett Ma MD PATHOLOGY/CYTOLO GY [facility] [address] [place] [address], [place] * ANTI HIV 1/2 (03/22/2020 3:45 PM CDT) HIV-1/HIV-2 ANTIBODY Non-Reacti ve Non-Reacti ve 03/24/2020 5:23 PM CDT [facility] Comment:HIV-1 p24 and HIV-1/ HIV-2 Ab not detected. Blood BLOOD SPECIMEN / Unknown Add On / Unknown 03/22/2020 3:45 PM CDT 03/24/2020 8:24 AM CDT Lucila Houston MD SEND OUTS [facility] [address] [place] [address], from Last 3 Months or Most Recently Relevant to Health Maintenance Care Teams Sheet Metal Former Relationship Specialty Start Date End Date Clinic, [facility] [address] [address] PCP - General 01/06/24
== END 2024-04-17 09:56 | disposition home or self-care (01) ==
PROVIDERS: PCP Family Medicine; Visit Provider Obstetrics & Gynecology
DX: N97.0 Female infertility associated with anovulation (principal); E03.8 Other specified hypothyroidism; Z79.899 Other long term (current) drug therapy
CPT/HCPCS: 83001; 83002; 83520; 84132

== ENCOUNTER 2024-05-18 11:37 | Outpatient (CLI) | payer BC, SELFPAY | END 2024-05-18 11:38 | disposition home or self-care (01) | LOC: NFLDREF 05-19 06:07 | PROVIDERS: PCP Family Medicine; Referring Provider Family Medicine; Visit Provider Family Medicine | DX: D72.829 Elevated white blood cell count, unspecified (principal); Z13.220 Encounter for screening for lipoid disorders; Z13.1 Encounter for screening for diabetes mellitus; Z13.29 Encounter for screening for other suspected endocrine disorder; Z13.21 Encounter for screening for nutritional disorder | CPT/HCPCS: 80061; 82947; 84132; 84439; 84443 ==

== ENCOUNTER 2024-07-21 13:00 | Outpatient (CLI) | payer BC, SELFPAY | END 2024-07-21 13:01 | disposition home or self-care (01) | LOC: NFLDREF 07-23 03:10 | PROVIDERS: PCP Family Medicine; Referring Provider Family Medicine; Visit Provider Obstetrics & Gynecology | DX: E03.8 Other specified hypothyroidism (principal); N91.2 Amenorrhea, unspecified | CPT/HCPCS: 84439; 84443 ==

== ENCOUNTER 2024-09-15 18:01 | Emergency (ER) | payer OTHER, SELFPAY ==
[2024-09-15 18:11] VITALS: BP 166/91; PULSE 98; RESP 18; TEMP 37.2; O2SAT 99; BMI 45.4
--- NOTE | 2024-09-15 18:34 | CRLHL7_ITS ---
For Patients: As a result of the Cures Act, medical imaging exams and procedure reports are released immediately into your electronic medical record. You may view this report before your referring provider. If you have questions, please contact your health care provider. INDICATION: Injury today, Amputation of distal left 3rd finger tip TECHNIQUE: Finger radiograph 3 views left 3rd COMPARISON: None FINDINGS: Bone: No acute fractures or aggressive bone lesions are identified. Amputation of the 3rd distal phalangeal tuft is noted. Joint: The metacarpophalangeal and interphalangeal joints are normal in appearance. Soft tissue: Amputation of the distal 3rd digit soft tissues are present. Evaluation of the digits is limited by hyperdense tourniquet over the distal aspect of the middle phalanx. No radiopaque foreign bodies are seen. IMPRESSION: 1. Amputation of the 3rd distal phalangeal tuft is noted. Dictated by Steve Huang MD @ 09/15/2024 7:28:21 PM Dictated by: Steve Huang MD @ 09/15/2024 19:28:29 (Electronically Signed)
--- NOTE | 2024-09-15 18:49 | ED.GENADULT ---
HPI - General Adult General Date Seen: 09/15/24 Chief complaint: Extremity Pain/Injury, Upper Stated complaint: Left hand middle finger cut off Time Seen by Provider: 09/15/24 18:07 History of Present Illness HPI narrative: This is a pleasant generally healthy 24-year-old female presenting to the ER today with her for evaluation of an amputation injury to her left hand 3rd digit. Patient reports that she and her family were at [employer] and they were ?just pulling around. ? They were apparently playing with some mary and she accidentally got her finger into this years and cut her finger tip off. She had brisk dark red venous oozing from her finger tip. They were able to collect the amputated finger tip and put it into a [employer] shopping bag in came straight here to the ER. She applied a a hair screen she wrapped 3 times around her finger and with that was able to control bleeding. She is otherwise generally healthy. No history of diabetes, cancer, or immunosuppression. She is not sure when her last tetanus shot was, but probably many years ago, when she was a girl. She is generally healthy. She does not have any medications. No allergies. Related Data Previous Rx's ?Medication ?Instructions ?Recorded cephalexin 500 mg capsule 500 mg PO QID #28 caps 09/15/24 hydrocodone 5 mg-acetaminophen 325 1 - 2 tab PO Q6H PRN pain #10 tabs 09/15/24 mg tablet Allergies Allergy/AdvReac Type Severity Reaction Status Date / Time No Known Drug Allergies Allergy Verified 09/15/24 18:18 PFSH PFSH Social History Smoking Status: Never smoker How often do you have a drink containing alcohol: monthly or less AUDIT-C Alcohol total score: 1 Non-prescribed substance use: denies use Exam Narrative: Exam Narrative: Constitutional: Appears well-developed and well-nourished. Active. Non-toxic appearing, but uncomfortable. HENT: Head: Atraumatic. No signs of injury. Nose: No nasal discharge. Mouth/Throat: Mucous membranes are moist. Pharynx is normal. Tonsils symmetric. Uvula midline. Airway patent. Eyes: Conjunctivae normal and EOM are normal. Pupils are equal, round, and reactive to light. Right eye exhibits no discharge. Left eye exhibits no discharge. No icterus. Neck: Normal range of motion. Neck supple. No adenopathy. No stridor. Cardiovascular: Normal rate and regular rhythm. No murmur heard. No murmurs, rubs, or gallops. Brisk capillary refill Pulmonary/Chest: Effort normal. No stridor. No respiratory distress. No wheezes.No rhonchi. No rales. N Musculoskeletal: Normal except for her left hand 3rd digit. Inspection of the left hand 3rd digit reveals a amputation of the finger tip. The proximal and of the amputation line extends through the distal half of her nail bed on the dorsal and through the soft tissue distal finger pad on the distal and. There is exposed dark red tissue. Because of overlying adherent blood, difficult to determine if there is exposed bone of the distal phalanges or not. D IP, PIP, MCP joints are not injured. She has intact ulnar and radial digital nerve function. She did bring the amputated bit of soft tissue with her in a [employer] shopping bag. I am able to locate this and the mint amputated piece does comprise the distal 1/3 or 1/2 of her fingernail plate and a little bit of the soft tissue from her skin of her distal finger tip. Neurological: Alert. Normal strength. No cranial nerve deficit or sensory deficit. Coordination normal. GCS eye subscore is 4. GCS verbal subscore is 5. GCS motor subscore is 6. Skin: Skin is warm. No rash noted. Const: Vital Signs, click to edit/add: Vital Signs - 24 hr 09/15/24 18:11 Temperature 98.9 F Pulse Rate [Right Pulse Oximeter] 98 Respiratory Rate 18 Blood Pressure [Ri ght Forearm] 166/91 H Pulse Oximetry 99 Oxygen Delivery Me thod Room Air Course Course ED Course: Patient was seen and evaluated in ER room 4. She was uncomfortable so 1st step was to give analgesia. Procedure: Digital block Indication: Left hand, 3rd digit finger tip amputation Verbal consent Sterile prep with Betadine Using 0.25% bupivacaine without epinephrine we infiltrated from a dorsal approach on the radial and ulnar side of the digit. We infiltrated a total of 4 mL of local anesthetic. Good anesthesia was achieved. No complications were noted. After initial digital block she still had some mild discomfort in her finger tip. We reinjected with another 3 mL of bupivacaine using sterile technique and sterile prep and good anesthesia was achieved. I retrieved the amputated bit of finger tip skin from the [employer] bag and we washed out with sterile saline. We then wrapped in sterile saline soaked gauze hip, put it in a plastic bag and that but that bag on ice water. However the distal fragment of tissue was primarily the distal 1/3 of the fingernail plate and a little bit of skin. Not really much viable finger tip pulp. I could not appreciate any palpable bone in the distal fragment to suggest that there was any part of the distal phalanges present in that amputated tissue. I ordered tetanus booster and prophylactic cephalexin 500 mg p.o. which were given here in the ER. Patient was sent for x-rays and they do confirm a small amputation of the distal tuft of the distal phalanges. Discussed options with the patient and her mother and her . We discussed that we could potentially try to sew back on the skin of the distal finger tip which would at least create a dressing there but might actually disc leaving nonviable tissue present on the wound which could then potentially trigger infections. We also discussed potential transfer to the trauma center for hand surgery evaluation to see if they would be able to do a reattachment. We discussed that if any attempt at reattachment were going to be undertaken, it would have to be tonight. Her amputated finger tip would not be reattachable tomorrow. Ultimately the patient does not want to transfer to a trauma center. A placed a call to Orthopedics here in [place]. They would recommend placement of a dressing over the amputated finger without reattachment of amputated finger tip skin. They will see the patient in clinic tomorrow morning for wound check and if necessary they jumpbasting canvas baster off a little bit of the distal phalanges to make sure the finger heels properly. I performed wound care. After good anesthesia from the digital block we did cleanse the wound with sterile water. There was dark red venous oozing from the wound. I applied a Gelfoam dressing and covered this with 0 form petroleum gauze. We then applied a little bit of a gauze dressing over that and then applied a loose tube gauze over the finger. With this, good hemostasis was achieved. At this point patient was stable for discharge from the ER. Plan will be discharge home tonight. She will take her next dose of the prophylactic cephalexin tonight before she goes to bed (typically goes to bed around 2:00 a.m.). She will call the orthopedic clinic tomorrow at a.m. when they open and arrange an ER follow-up appointment. She will be NPO tomorrow prior to the orthopedic visit in case she needs to go to the OR or have any sedation. Prescription for hydrocodone/acetaminophen and prescription for cephalexin prescribed to the [facility] in [place] and she will get them filled through [facility]. Opiate and sedation precautions reviewed. Vital Signs Vital signs: Initial Vital Signs Temperature 98.9 F 09/15/24 18:11 Temperature Source Temporal Artery Scan 09/15/24 18:11 Pulse Rate 98 09/15/24 18:11 Pulse Rhythm Regular 09/15/24 18:11 Pulse Strength 3+ Normal 09/15/24 18:11 Respiratory Rate 18 09/15/24 18:11 Blood Pressure 166/91 H 09/15/24 18:11 Blood Pressure Mean 116 H 09/15/24 18:11 Blood Pressure Position Sitting 09/15/24 18:11 Pulse Oximetry 99 09/15/24 18:11 Oxygen Delivery Method Room Air 09/15/24 18:11 Vital Signs Temperature 98.9 F 09/15/24 18:11 Pulse Rate 98 09/15/24 18:11 Respiratory Rate 18 09/15/24 18:11 Blood Pressure 166/91 H 09/15/24 18:11 Pulse Oximetry 99 09/15/24 18:11 Oxygen Delivery Method Room Air 09/15/24 18:11 Temperature 98.9 F 09/15/24 18:11 Pulse Rate 98 09/15/24 18:11 Respiratory Rate 18 09/15/24 18:11 Blood Pressure 166/91 H 09/15/24 18:11 Pulse Oximetry 99 09/15/24 18:11 Oxygen Delivery Method Room Air 09/15/24 18:11 Medications Administered Medications: Discontinued Medications Generic Name Dose Route Start Last Admin Trade Name Freq PRN Reason Stop Dose Admin Cephalexin HCl 500 mg 09/15/24 18:49 09/15/24 18:59 Cephalexin 500 Mg Capsule PO 09/15/24 18:50 500 mg ONCE ONE Administration Diphtheria/Tetanus/Acell Pertussis 0.5 ml 09/15/24 18:49 09/15/24 18:59 Tetanus/Diphth/Pertussis 0.5 Ml Syringe IM 09/15/24 18:50 0.5 ml .ONCE ONE Administration Medical Decision Making Imaging Data XR 3rd digit L heand: Attestation: I have reviewed the pertinent imaging results. Radiologist's impression: FINDINGS: Bone: No acute fractures or aggressive bone lesions are identified. Amputation of the 3rd distal phalangeal tuft is noted. Joint: The metacarpophalangeal and interphalangeal joints are normal in appearance. Soft tissue: Amputation of the distal 3rd digit soft tissues are present. Evaluation of the digits is limited by hyperdense tourniquet over the distal aspect of the middle phalanx. No radiopaque foreign bodies are seen. IMPRESSION: 1. Amputation of the 3rd distal phalangeal tuft is noted. Discharge Plan Discharge Clinical Impression: Traumatic amputation of fingertip Patient Disposition: Home, Self-Care Condition: Stable Instructions: Finger Amputation (ED) Additional Instructions: As we discussed, please keep your sterile dressing in place tonight and leave it in place tomorrow morning until you see the orthopedic doctors. Call the [facility] tomorrow morning at 8:00 a.m. to schedule an ER follow-up visit for tomorrow. You can call [phone]. tell the adoption coordinator when you call at 8:00 a.m. that you need an a appointment to see the orthopedic team in the clinic tomorrow morning. Please take your next dose of antibiotics tonight before bed and another dose tomorrow morning. Other than medications, Do not eat or drink anything tomorrow morning until you see the orthopedic team (so that you have a empty stomach in case you need anesthesia for the OR). To treat the pain you call us Tylenol or ibuprofen. Use the prescription pain medication if needed for pain that is not controlled by the other medications. Please come back to the ER right away if you have any problems especially uncontrolled bleeding, severe uncontrolled pain, or any other concerns. Prescriptions: New cephalexin 500 mg capsule 500 mg PO QID Qty: 28 0RF hydrocodone-acetaminophen 5-325 mg tablet 1 - 2 tab PO Q6H PRN (Reason: pain) Qty: 10 0RF Follow Up/Referrals: Provider,Not a Local [Primary Care Provider] - Stand Alone Forms: Work/School Release, [facility] Info Instructions
[2024-09-15] MEDS: TETANUS/DIPHTH/PERTUSSIS 0.5 ML SYRINGE IM (18:59)
[2024-09-15] MEDS: cephALEXin 500 MG CAPSULE PO ×2 (18:59→21:50)
--- OUTSIDE RECORDS SUMMARY | 2024-09-15 19:07 | XMS_ITS | Clinical Summary ---
Author Organization [facility] Address [facility] [place] [address] Care Team Providers Care Origination Specialist Name Role Phone SalasteBrett brooks MD Primary Care Provider + Allergies No known active allergies Medications levonorgestrel-eth inyl estrad, 0.1mg-20mcg, (ALESSE-28) 0.1-20 mg-mcg tabletIndications: Encounter for oral contraception initial prescription Take 1 Tablet by mouth once daily. 84 Tablet 3 3 Active fluticasone propion-salmeteroL (Advair Diskus) 100-50 mcg/dose diskus inhalerIndications :Exacerbation of asthma, unspecified asthma severity, unspecified whether persistent (HC) Inhale 1 Puff by mouth two times daily. 60 Each 3 Active albuterol HFA (ProAir HFA) 90 mcg/actuation inhalerIndications :Mild intermittent asthma without complication (HC) Inhale 2 Puffs by mouth every 4 hours if needed for Wheezing. 1 Each 1 4 Active levothyroxine (SYNTHROID) 25 mcg tablet Take 25 mcg by mouth once daily. 4 Active medroxyPROGESTERon e (PROVERA) 10 mg tablet TAKE 1 TABLET BY MOUTH ONCE DAILY FOR 14 DAYS 4 Active spironolactone (ALDACTONE) 50 mg tablet TAKE 1 TABLET BY MOUTH EVERY DAY. TAKE 1 DAILY FOR 1 WEEK IF TOLERATED, INCREASE TO TWICE DAILY. 4 Active meclizine (ANTIVERT) 25 mg tabletIndications: Vertigo 2TAKE 1 TABLET BY MOUTH THREE TIMES A DAY NEEDED 24 Tablet 4 Active metFORMIN (GLUCOPHAGE) 500 mg tabletIndications: Class 3 severe obesity due to excess calories with serious comorbidity and body mass index (BMI) of 40.0 to 44.9 in adult Take 1 Tablet (500 mg) by mouth two times daily with meals. 60 Tablet 11 5 Active Active Problems Problem Noted Date Diagnosed Date Pap smear for cervical cancer screening 07/28/19 22 Overview (09/07/2021): Plan: Pap due 07/2024 Anxiety 11/11/2017 Acne vulgaris 04/10/2016 Overview (04/10/2016): iPledge ID # [id number] Irregular periods 08/10/2014 Sleep disorder 06/24/2009 ADHD [...] study 02/05/2007 06/30/2012 Dermatophytosis of foot 02/05/200708/2012 Encounters Date Type Department Care Team Description 07/22/2024 8:20 AM TIE BINDER Office Visit [facility] [address] [place] [address] Brett Ma MD Consult (Wants to try a weight loss medication) 07/22/2024 Travel from Last 3 Months Immunizations Immunization Administration Dates Next Due AMB Influenza, IIV3 (Age >=3 years)(Flu Clinic Only) 05/09/2009,03/30/2008 AMB Influenza, IIV4 PF (=>6 mos Flulaval,Fluzone Fluarix)(Flu Clinic Only) 03/12/2016,02/11/2014 DTaP 12/10/2003, 1,1999,10/18,1999 DTaP-HIB (TriHIBIT) 1999 HIB PRP-OMP (PedvaxHIB) 1999 HIB-HepB (Comvax) 06/25/2000,1999 Hep B (Hepatitis B (Adult) R ecombinant Adjuvanted) 11/12/2022 Hepatitis A (Peds) 10/25/2008,08/02/2008, 001 Hepatitis B (Peds) 02/10/2007,1999 Human Papilloma Virus Vaccine 10/17/2011, 012,07/17/2010 INFLUENZA, IIV3 PF (AGE >= 6 MO) 04/03/2024 Inactivated Polio Vaccine 12/10/2003,,1999,08/17 Influenza A (H1N1), [...] Used Date Smoking Tobacco: Former Cigarettes 0.3 6 S tarted: 09/29/2018 Smokeless Tobacco: Former Quit: 05/13/2019 Tobacco Cessation:Counseling Given: Yes Alcohol Use Standard Drinks/Week Comments Never 0 (1 standard drink = 0.6 oz pur e alcohol) PHQ-2 Answer Date Recorded PHQ-2 TOTAL SCORE 2 07/22/2024 Social Connections Answer Date Recorded Do you [...] is your housing situation today? 1 03/05/2024 Utilities Answer Date Recorded Do you have trouble paying f or utilities (for example, heat, electricity, water, phone)? 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 Not on file Not on file Not on file Obstetrics History Para Term AB IAB SAB Ectopic Multiple Livin g Live Births 0 0 0 0 0 0 0 0 0 0 0 Last Filed Vital Signs Vital Sign Reading Time Taken Comments Blood Pressure 111/78 07/22/2024 8:23 AM TIE BINDER Pulse 83 07/22/2024 8:23 AM TIE BINDER Temperature 37.6 C (99.6 F) 04/29/2024 2:58 PM TIE BINDER Respiratory Rate 18 06/18/2022 3:28 PM TIE BINDER Oxygen Saturation 99% 07/22/2024 8:23 AM TIE BINDER Inhaled Oxygen Concentration - - Weight 113.9 kg (251 lb 3.2 oz) 07/22/2024 8:23 AM TIE BINDER Height 160 cm (5' 3) 07/22/2024 8:23 AM TIE BINDER Body Mass Index 44.5 07/22/2024 8:23 AM TIE BINDER Plan of Treatment Upcoming Encounters Date Type Department Care Team (Late st Contact Info) Description 10/20/2024 12:50 PM CDT Office Visit [facility] [address] [place] [address] VoBrett kumar MD [address] [place] [address] Health Maintenance Due Date Last Done Comments Hepatitis C screening for age 18-79 2017 COVID-19 vaccine series ( season) 2024 05/25/2021, 10/13/2020, 09/15/2020 Pap test for age 21-65 07/27/2024 07/27/2021 BMI (ht and wt on same day) for age 18+ 07/22/2025 07/22/2024, 04/28/2024, 03/05/2024, Additional history exists Depression screening for age 12+ 07/22/2025 07/22/2024, 07/27/2021, 03/23/2020, Additional history exists Tetanus booster 07/28/2031 07/27/2021, 07/17/2010 Tdap Completed 07/17/2010 HPV series for age 9-26 Addressed 10/17/19 12, 06/22/2011, 06/01/2011 (Declined), Additional history exists Overridden with the intention of not completing the topic HIV for age 15-65 Completed 03/22/2020 Pneumococcal series for age 6-49 Aged Out 02/14/2023, 06/25/2000, 03/28/2000, Additional history exists No longer eligible based on patient's age to complete this topic Influenza Vaccine Completed 04/03/2024, , 03/22/2020, Additional history exists Procedures Procedure Name Priority Date/Time Associated Diagnosis Comments HEMOGLOBIN A1C Routine 07/22/2024 9:23 AM TIE BINDER Class 3 severe obesity due to excess calories with serious comorbidity and body mass index (BMI) of 40.0 to 44.9 in adult (HC) 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 THIN PREP PAP SCREEN IMAGED Routine 07/27/2021 2:35 PM TIE BINDER Pap smear for cervical cancer screening ANTI HIV 1/2 Routine 03/22/2020 3:45 PM CDT Routine screening for STI (sexually transmitted infection) from Last 3 Months or Most Recently Relevant to Health Maintenance Results * HEMOGLOBIN A1C (07/22/2024 9:23 AM TIE BINDER) HEMOGLOBIN A1C 5.5 <5.7 % of total Hgb [facility] Comment: For the purpose of screening for the presence of diabetes: <5.7% Consistent with the absence of diabetes 5.7-6.4% Consistent with increased risk for diabetes (prediabetes) > or =6.5% Consistent with diabetes This assay result is consistent with a decreased risk of diabetes. Currently, no consensus exists regarding use of hemoglobin A1c for diagnosis of diabetes in children. According to [place] Diabetes Association (ADA) guidelines, hemoglobin A1c <7.0% represents optimal control in non- diabetic patients. Different metrics may apply to specific patient populations. Standards of Medical Care in Diabetes(ADA). 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 THIN PREP PAP SCREEN IMAGED (07/27/2021 2:35 PM TIE BINDER) Case Report Gynecologic Cytology Report Case: [id number] Authorizing Provider: Brett Ma MD Collected: 07/27/2021 1435 Ordering Location: [facility] Received: 07/27/2021 1449 Clinic First Screen: Kathleen Dailey Specimen: 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 ThinPrep Vial Screening, Cervical 08/04/2021 6:24 PM [facility]IE BINDER [facility] INTERPRETATION/ RESULT NEGATIVE FOR INTRAEPITHELIAL LESION OR MALIGNANCY (NIL) (none) 08/04/2021 6:24 PM TIE BINDER [facility] ENTRAL LABORATORY at 1824 TIE BINDER SPECIMEN ADEQUACY Satisfactory for evaluation No endocervical component seen 08/04/2021 6:24 PM TIE BINDER [facility] HPV REQUEST HPV if ASCUS 08/04/2021 6:24 PM [facility]ER [facility] Date of LMP 06/28/2021 08/04/2021 6:24 PM TIE BINDER [facility] EN[facility] Last Pap Date 0000 08/04/2021 6:24 PM [facility]IE BINDER [facility] Last Pap Result First Pap/Unknown 6:24 PM TIE BINDER [facility] Abnormal Pap or [place] Bx in last 5 years No 08/04/2021 6:24 PM [facility]IE BINDER [facility] Menstrual Status Regular Periods 08/04/2021 6:24 PM TIE BINDER [facility] [place] Bx Done Today No 08/04/2021 6:24 PM TIE BINDER [facility] ENTRAL LABOR[facility]ORY Additional Information None given 08/04/2021 6:24 PM TIE BINDER [facility] EN[facility] Comment: Cytology is screened at [facility][1] Laboratory - [address], [place] [address] and [facility] - [address], [place] [address] and [facility] - [address] [place] [address] Interpreted at [facility][1] Laboratory - [address], [place] [address] Automated Review Successful 08/04/2021 6:24 PM TIE BINDER [facility] ENTR[facility] Comment:Specimen processed s uccessfully by automated route cdl driver device, ThinPrep Imaging System, [employer] Note The pap test is a screening technique, not a diagnostic procedure. It is used primarily to screen for squamous cancers and precursor lesions. Published studies have shown that it is subject to both false negative and false positive results. The pap test should not be used as the sole means to diagnose or exclude pre-malignant and malignant lesions. 08/04/2021 6:24 PM TIE BINDER [facility] ENTRNY LABORATORY Other (Cervical) Non-Blood / Unknown 07/27/2021 2:35 PM TIE BINDER 07/27/2021 2:49 PM TIE BINDER Brett Ma MD PATHOLOGY/CYTOLOGY Final Result [facility] [address] [place] [address], [place] * ANTI HIV 1/2 (03/22/2020 3:45 PM CDT) HIV-1/HIV-2 ANTIBODY Non-Reacti ve Non-Reacti ve 03/24/2020 5:23 PM CDT [facility] TRAL [facility] Comment:HIV-1 p24 and HIV-1/ HIV-2 Ab not detected. Blood BLOOD SPECIMEN / Unknown Add On / Unknown 03/22/2020 3:45 PM CDT 03/24/2020 8:24 AM CDT Lucila Houston MD SEND OUTS Fin al Result [facility] [address] [place] [address], from Last 3 Months or Most Recently Relevant to Health Maintenance Insurance #[id number] [facility] [place] [id number] [facility] Care Teams Origination Specialist Relationship Specialty Start Date End Date Votel, Brett Rodrigues MD [address] [place] [address] PCP - General Family Practice 06/04/24
[2024-09-15 21:50] VITALS: TEMP 37.2
[2024-09-15] MEDS: HYDROCODONE-ACETAMIN 5-325 MG 1 TAB PO (21:50)
== END 2024-09-15 20:35 | disposition home or self-care (01) ==
PROVIDERS: Emergency Provider Emergency Medicine
DX: S68.623A Partial traumatic transphalangeal amputation of left middle finger, initial encounter (principal); W27.8XXA Contact with other nonpowered hand tool, initial encounter; Y93.83 Activity, rough housing and horseplay; Y92.513 Shop (commercial) as the place of occurrence of the external cause
CPT/HCPCS: 64450; 73140; 90471; 90715; 99283; A9270

== ENCOUNTER 2025-01-12 13:39 | Outpatient (CLI) | payer OTHER, SELFPAY ==
[2025-01-12 20:40] LABS: Bacterial Vaginosis* Negative (Negative); Candida glab/krus NOT DETECTED (No Detected)
[2025-01-12 21:10] LABS: Chlamydia DNA Amplified* NOT DETECTED (No Detected); GC DNA Amplified* NOT DETECTED (No Detected)
== END 2025-01-12 13:40 | disposition home or self-care (01) ==
PROVIDERS: PCP Family Medicine; Visit Provider Registered Nurse
DX: R10.2 Pelvic and perineal pain (principal); E03.8 Other specified hypothyroidism; N91.2 Amenorrhea, unspecified; N64.3 Galactorrhea not associated with childbirth
CPT/HCPCS: 81513; 84146; 84439; 84443; 87077; 87086; 87481; 87491; 87591; 87661

== ENCOUNTER 2025-02-22 13:40 | Outpatient (CLI) | payer OTHER, SELFPAY | END 2025-02-22 13:41 | disposition home or self-care (01) | LOC: NFLDREF 02-23 19:01 | PROVIDERS: PCP Family Medicine; Referring Provider Family Medicine; Visit Provider Registered Nurse | DX: E03.8 Other specified hypothyroidism (principal) | CPT/HCPCS: 84439; 84443 ==